=== PATIENT | female | born 1970 | race Caucasian/White ===

== ENCOUNTER 2023-10-06 13:02 | Emergency (ER) | payer MEDICAID, OTHER ==
[~2023-10-06] VITALS: Ht 154.9 cm; Wt 99.8 kg
[~2023-10-06 13:02] MED LIST: AMLO5TAB88 PO; ASPI-1406 PO; CLOP-31 PO; INSU100I49 IM; INSU300I12 IM; LIP40 PO; LOSA25TA26 PO
[2023-10-06 13:12] VITALS: BP 186/101; PULSE 105; RESP 16; TEMP 98; O2SAT 100
== END 2023-10-06 15:36 | disposition home or self-care (01) ==
LOC: ER 13:02
DX: I10 Essential (primary) hypertension (principal); E11.9 Type 2 diabetes mellitus without complications; Z86.73 Personal history of transient ischemic attack (TIA), and cerebral infarction without residual deficits
CPT/HCPCS: 99281